=== PATIENT | female | born 1980 | race Caucasian/White ===

== ENCOUNTER 2017-06-11 01:17 | Emergency (ER) | payer SELFPAY ==
[2017-06-11 01:19] VITALS: BP 105/69; PULSE 84; RESP 16; TEMP 98.7; O2SAT 97
[2017-06-11] MEDS ORDERED: KETOROLAC TROMETHAMINE 60 MG/2 ML (IM) VIAL IM ONE (03:00)
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
[2017-06-11] MEDS ORDERED: PRED20 PO (03:51)
[2017-06-11] MEDS ORDERED: ZANT150T2 PO (03:51)
== END 2017-06-11 04:18 | disposition home or self-care (01) ==
LOC: NEPD 01:17
DX: S83.91XA Sprain of unspecified site of right knee, initial encounter (principal); K21.0 Gastro-esophageal reflux disease with esophagitis; F17.200 Nicotine dependence, unspecified, uncomplicated; X50.1XXA Overexertion from prolonged static or awkward postures, initial encounter; Y93.01 Activity, walking, marching and hiking
CPT/HCPCS: 80307; 96372; 99284; E0113; J1885